=== PATIENT | female | born 1990 | race Caucasian/White ===

== ENCOUNTER 2017-12-18 09:15 | Emergency (ER) | payer BC ==
[2017-12-18 09:44] VITALS: BP 122/67
--- NOTE | 2017-12-18 10:06 | UC ---
General HPI - HPI Summary HPI Summary: elevated Blood Pressure x 4 days ago checked her BP at work 4 days ago since she wasn't feeling well, noted to be 160 /100 no other sx , no chest pain , no sob, also c/o left ear/ jaw pain radiating her her left jaw , no cold symptoms - History of Current Complaint Chief Complaint: UCGeneralIllness Stated Complaint: BP CONCERN & EAR COMPLAINT Time Seen by Provider: 12/18/17 09:36 Hx Obtained From: Patient Hx Last Menstrual Period: November, STATES PERIOD IS IRREGULAR, SINCE NEW BCP Onset/Duration: Gradual Onset, Lasting Days - 4, Resolved Timing: Intermittent Episodes Lasting: - one day Onset Severity: Moderate Current Severity: None Pain Intensity: 2 Pain Location at: left ear and left jaw Pain Radiates to: left jaw Character: sore Aggravating: moving her jaw Alleviating: ibuprofen Associated Signs & Symptoms: Negative: Fever, Headache, SOB, Trauma - Allergy/Home Medications Allergies/Adverse Reactions: Allergies Allergy/AdvReac Type Severity Reaction Status Date / Time No Known Allergies Allergy Verified 12/18/17 09:31 Home Medications: Home Medications Escitalopram Oxalate [Lexapro 20 mg] 20 mg PO DAILY 12/18/17 [History Confirmed 12/18/17] Norethindr/Eth Estradiol(Nf) [Lo Loestrin Fe (NF)] 1 tab PO DAILY 12/18/17 [ History Confirmed 12/18/17] PMH/Surg Hx/FS Hx/Imm Hx Psychological History: Anxiety Other History Of: Negative For: HIV, Hepatitis B, Hepatitis C, Anticoagulant Therapy - Surgical History Surgical History: Yes Surgery Procedure, Year, and Place: 2017- [facility] - Family History Known Family History: Positive: Cardiac Disease - Social History Alcohol Use: Occasionally Substance Use Type: None Smoking Status (MU): Light Every Day Tobacco Smoker Type: Cigarettes Amount Used/How Often: 1/4 PPD Have You Smoked in the Last Year: Yes When Did the Patient Quit Smoking/Using Tobacco: 05/22/15 - Immunization History Most Recent Influenza Vaccination: [id number] Hx Tetanus, Diphtheria Vaccination: Yes Vaccination Up to Date: Yes Review of Systems Constitutional: Negative Skin: Negative Eyes: Negative ENT: Ear Ache Respiratory: Negative Cardiovascular: Negative Gastrointestinal: Negative Is Patient Immunocompromised?: No All Other Systems Reviewed And Are Negative: Yes Physical Exam Triage Information Reviewed: Yes Appearance: Well-Appearing, No Pain Distress, Well-Nourished Vital Signs: Initial Vital Signs Temp 98 F 12/18/17 09:33 Pulse 75 12/18/17 09:33 Resp 20 12/18/17 09:33 BP 122/67 12/18/17 09:33 Pulse Ox 100 12/18/17 09:33 Vital Signs Reviewed: Yes Eye Exam: Normal Eyes: Positive: Conjunctiva Clear ENT: Positive: Normal ENT inspection, Hearing grossly normal, Pharynx normal, TMs normal, Other - tenderness left TMJ. Negative: TM bulging, TM dull, TM red Neck: Positive: Supple, Nontender, No Lymphadenopathy Respiratory: Positive: Chest non-tender, Lungs clear, Normal breath sounds Cardiovascular: Positive: RRR, No Murmur, Pulses Normal Skin Exam: Normal Course/Dx - Differential Dx - Multi-Symptom Provider Diagnoses: TMJ Discharge - Sign-Out/Discharge Documenting (check all that apply): Patient Departure - Discharge Plan Condition: Stable Disposition: HOME Patient Education Materials: Temporomandibular Disorder (ED) Referrals: No Primary Care Phys,NOPCP [Primary Care Provider] - 2 Weeks Additional Instructions: normal Blood Pressure at the office today please cont. to monitor your BP every other day for the next few weeks follow up with your pcp in 2 weeks - Billing Disposition and Condition Condition: STABLE Disposition: Home
== END 2017-12-18 10:05 | disposition home or self-care (01) ==
LOC: UCCORT 09:15
DX: M26.602 Left temporomandibular joint disorder, unspecified (principal); F17.210 Nicotine dependence, cigarettes, uncomplicated
CPT/HCPCS: 99211; G0463

== ENCOUNTER 2018-01-31 12:16 | Emergency (ER) | payer BC ==
[2018-01-31 12:36] VITALS: BP 139/80
--- NOTE | 2018-01-31 14:50 | UC ---
Shortness of Breath HPI - HPI Summary HPI Summary: began having episodes of heart racing--after starting buspar----also has noted upset stomach and watery diarrhea for the past 2 days has felt fatigued---did have a fever 2 days ago - History of Current Complaint Chief Complaint: UCGeneralIllness Stated Complaint: SHORTNESS OF BREATH Time Seen by Provider: 01/31/18 14:21 Hx Obtained From: Patient Hx Last Menstrual Period: 01/06/18 ?: No Onset/Duration: Sudden Onset, Lasting Days, Still Present Timing: Constant Current Severity: Mild Aggrevating Factors: Other - anxiety - Allergy/Home Medications Allergies/Adverse Reactions: Allergies Allergy/AdvReac Type Severity Reaction Status Date / Time No Known Allergies Allergy Verified 01/31/18 12:36 Home Medications: Home Medications busPIRone TAB* [Buspar TAB*] 10 mg PO DAILY 01/31/18 [History Confirmed 01/31/18 ] hydrOXYzine HCL TAB* [Atarax 25 MG TAB*] 25 mg PO TID PRN 01/31/18 [History Confirmed 01/31/18] PMH/Surg Hx/FS Hx/Imm Hx Previously Healthy: No Psychological History: Anxiety Other History Of: Negative For: HIV, Hepatitis B, Hepatitis C, Anticoagulant Therapy - Surgical History Surgical History: Yes Surgery Procedure, Year, and Place: 2017- [facility] - Family History Known Family History: Positive: Cardiac Disease - Social History Occupation: Employed Full-time Lives: With Family Alcohol Use: Occasionally Substance Use Type: None Smoking Status (MU): Light Every Day Tobacco Smoker Type: Cigarettes Amount Used/How Often: 1/2 PPD Length of Time of Smoking/Using Tobacco: since age 16 Have You Smoked in the Last Year: Yes When Did the Patient Quit Smoking/Using Tobacco: 05/22/15 - Immunization History Most Recent Influenza Vaccination: [id number] Hx Tetanus, Diphtheria Vaccination: Yes Vaccination Up to Date: Yes Review of Systems Constitutional: Fever, Fatigue Skin: Negative Eyes: Negative ENT: Negative Respiratory: Negative Cardiovascular: Negative Gastrointestinal: Abdominal Pain, Diarrhea, Nausea Genitourinary: Negative Motor: Negative Neurovascular: Negative Musculoskeletal: Negative Neurological: Negative Psychological: Negative Is Patient Immunocompromised?: No All Other Systems Reviewed And Are Negative: Yes Physical Exam Triage Information Reviewed: Yes Appearance: Well-Appearing, No Pain Distress, Well-Nourished Vital Signs: Initial Vital Signs Temp 97 F 01/31/18 12:31 Pulse 88 01/31/18 12:31 Resp 17 01/31/18 12:31 BP 139/80 01/31/18 12:31 Pulse Ox 100 01/31/18 12:31 Vital Signs Reviewed: Yes Eye Exam: Normal Eyes: Positive: Conjunctiva Clear ENT Exam: Normal ENT: Positive: Normal ENT inspection, Hearing grossly normal. Negative: Trismus , Muffled voice, Hoarse voice Dental Exam: Normal Neck exam: Normal Neck: Positive: Supple, Nontender, No Lymphadenopathy Respiratory Exam: Normal Respiratory: Positive: Chest non-tender, Lungs clear, Normal breath sounds, No respiratory distress, No accessory muscle use Cardiovascular Exam: Normal Cardiovascular: Positive: RRR, No Murmur, Pulses Normal, Brisk Capillary Refill Abdominal Exam: Normal Abdomen Description: Positive: Nontender, No Organomegaly, Soft. Negative: CVA Tenderness (R), CVA Tenderness (L), Distended, Guarding Bowel Sounds: Positive: Present Musculoskeletal Exam: Normal Musculoskeletal: Positive: Strength Intact, ROM Intact, No Edema Neurological Exam: Normal Neurological: Positive: Alert, Muscle Tone Normal Psychological Exam: Normal Skin Exam: Normal Diagnostics - Laboratory Diagnostic Studies Completed/Ordered: ua sg 1.025 trace ketones u preg negative---- Shortness of Breath Dx - Course Course Of Treatment: increae fluids, rest, stop Burpar, labs and stool sample follow with pcp in 5-6 days as planned--return to urgenct care or ED for worsening symptoms - Differential Dx/Diagnosis Provider Diagnoses: fatigue, acute diarrhea Discharge - Sign-Out/Discharge Documenting (check all that apply): Patient Departure All imaging exams completed and their final reports reviewed: No Studies - Discharge Plan Condition: Stable Disposition: HOME Patient Education Materials: Fatigue (ED), Nutrition Tips for Relief of Diarrhea (ED), Anxiety (ED) Referrals: Maritza Bender PA [Primary Care Provider] - (as planned on Friday) - Billing Disposition and Condition Condition: STABLE Disposition: Home
[2018-02-01 14:18] LABS: Hematocrit 45 % (35-47); Hemoglobin 15.2 g/dl (12.0-16.0); Mean Corpuscular HGB Conc 34 g/dl (31-36); Mean Corpuscular Hemoglobin 29 pg (27-31); Mean Corpuscular Volume 88 fL (80-97); Mean Platelet Volume 8.9 um3 (7.4-10.4); Platelet Count 255 10^3/ul (150-450); Red Blood Count 5.17 10^6/ul (4.00-5.40); Red Cell Distribution Width 15 % (10.5-15)
[2018-02-01 14:30] LABS: EGFR Non-African American 85.5 (>60)
[2018-02-01 14:48] LABS: ABS Basophils 0 10^3/ul (0-0.2); ABS Eosinophils 0.1 10^3/ul (0-0.6); ABS Lymphocytes 1.2 10^3/ul (1.0-4.8); ABS Monocytes 0.7 10^3/ul (0-0.8); ABS Nucleated RBC 0 10^3/ul; Eosinophil % 1.4 % (0-6); Lymphocyte % 17.7 % (25-47); Nucleated Red Blood Cells % 0.1
== END 2018-01-31 15:51 | disposition home or self-care (01) ==
LOC: UCCORT 12:16
DX: R53.83 Other fatigue (principal); R19.7 Diarrhea, unspecified; F17.210 Nicotine dependence, cigarettes, uncomplicated
CPT/HCPCS: 36415; 80053; 81003; 82272; 84443; 84702; 85025; 87045; 87046; 87328; 87329; 87493; 87899; 93005; 99211; G0463

== ENCOUNTER 2019-04-26 20:43 | Emergency (ER) | payer BC ==
[2019-04-26 20:57] VITALS: BP 127/68
--- NOTE | 2019-04-26 21:12 | UC ---
UC General HPI - HPI Summary HPI Summary: 28-year-old female who has had some abdominal bloating the past couple of days. She states she had a bowel movement earlier today and she feels like she passed a "clump of worms". She has a cat at home however has not noticed any worms present. No travel outside the [place]. Denies any fever or chills. - History of Current Complaint Chief Complaint: UCGI Stated Complaint: DIARRHEA,NAUSEA Time Seen by Provider: 04/26/19 21:04 Hx Obtained From: Patient Hx Last Menstrual Period: Apr 23 Onset/Duration: Gradual Onset, Lasting Days Onset Severity: Mild Current Severity: Mild Pain Intensity: 0 - Allergy/Home Medications Allergies/Adverse Reactions: Allergies Allergy/AdvReac Type Severity Reaction Status Date / Time No Known Allergies Allergy Verified 04/26/19 20:57 PMH/Surg Hx/FS Hx/Imm Hx Previously Healthy: Yes Other History Of: Negative For: HIV, Hepatitis B, Hepatitis C, Anticoagulant Therapy - Surgical History Surgical History: Yes Surgery Procedure, Year, and Place: 2017- [facility] - Family History Known Family History: Positive: Cardiac Disease - Social History Lives: With Family Alcohol Use: Weekly Substance Use Type: None Smoking Status (MU): Light Every Day Tobacco Smoker Type: Cigarettes Amount Used/How Often: 1/2 PPD Length of Time of Smoking/Using Tobacco: since age 16 Have You Smoked in the Last Year: Yes When Did the Patient Quit Smoking/Using Tobacco: 05/22/15 - Immunization History Most Recent Influenza Vaccination: [id number] Hx Tetanus, Diphtheria Vaccination: Yes Vaccination Up to Date: Yes Review of Systems All Other Systems Reviewed And Are Negative: Yes Gastrointestinal: Positive: Nausea - Occasional nausea and feels like she has bloating. She denies any specific abdominal pain and denies diarrhea. Is Patient Immunocompromised?: No Physical Exam Triage Information Reviewed: Yes Appearance: Well-Appearing, No Pain Distress, Well-Nourished Vital Signs: Initial Vital Signs Temp 98.4 F 04/26/19 20:49 Pulse 79 04/26/19 20:49 Resp 18 04/26/19 20:49 BP 127/68 04/26/19 20:49 Pulse Ox 100 04/26/19 20:49 Vital Signs Reviewed: Yes Respiratory: Positive: Lungs clear, Normal breath sounds, No respiratory distress, No accessory muscle use Cardiovascular: Positive: RRR, No Murmur, Pulses Normal, Brisk Capillary Refill Abdomen Description: Positive: Nontender, No Organomegaly, Soft, Other: - Her abdomen is nontender however she does feel like she is mildly bloated.. Negative: CVA Tenderness (R), CVA Tenderness (L), Distended, Guarding, Hepatomegaly, Splenomegaly Bowel Sounds: Positive: Present Musculoskeletal Exam: Normal Neurological Exam: Normal Psychological Exam: Normal Skin Exam: Normal Course/Dx - Course Course Of Treatment: The patient is comfortable here. I'm going to treat her with albendazole. She is to follow-up with her clinic scheduler regarding testing the cat for worms. She is also to call the sales professional and talk about it with her doctor whether or not to treat the rest of the family. Patient is agreeable to this plan of action. - Diagnoses Provider Diagnosis: Worms in stool Discharge ED - Sign-Out/Discharge Documenting (check all that apply): Patient Departure All imaging exams completed and their final reports reviewed: No Studies - Discharge Plan Condition: Good Disposition: HOME Prescriptions: Albendazole 400 mg PO ONCE 1 Days #2 tablet Referrals: Maritza Bender PA [Primary Care Provider] - Additional Instructions: Good handwashing, repeat the dose in 2 weeks. Have your cat checked for worms. Call your primary care provider and asked if you're family should be treated. Go to the emergency room if you have any abdominal pain or worsening symptoms. - Billing Disposition and Condition Condition: GOOD Disposition: Home
== END 2019-04-26 21:18 | disposition home or self-care (01) ==
LOC: UCCORT 20:43
DX: B83.9 Helminthiasis, unspecified (principal); R11.0 Nausea; F17.210 Nicotine dependence, cigarettes, uncomplicated
CPT/HCPCS: 99212; G0463